=== PATIENT | female | born 1985 | race Hispanic/Latino ===

== ENCOUNTER 2021-03-17 14:46 | Emergency (ER) | payer MEDICAID, OTHER ==
--- NOTE | 2021-03-17 17:39 | Cat Scan Report ---
. CT neck wo con HISTORY: believes she swallowed a toothpick COMPARISON: None. TECHNIQUE: CT of the neck is performed. All CT scans at this location are performed using CT dose red uction for ALARA by means of automated exposure control. FINDINGS: Skull Base: No significant abnormality. Nasopharynx, oropharynx, hypopharynx: No significant abnormality. No mass identified.. Tonsils: Tonsils appear within normal limits. Airway: Patent and without significant abnormality. Salivary glands: No significant abnormality. Thyroid:No significant abnormality. Lymphatics: No lymphadenopathy. Vasculature: No significant abnormality. Osseous Structures: No significant abnormality Additional findings: Mild mucosal thickening of the maxillary sinuses.. IMPRESSION: 1. No foreign body is identified. Signer Name: Stephan Kulkarni MD Signed: 03/17/2021 5:35 PM Workstation Name: [id number]
--- NOTE | 2021-03-17 17:57 | Emergency Department Report ---
ED General Adult HPI - General Chief complaint: Skin/Abscess/Foreign Body Stated complaint: TOOTHPICK STUCK IN THROAT Time Seen by Provider: 03/17/21 15:46 Source: patient Mode of arrival: Ambulatory Limitations: No Limitations - History of Present Illness Initial comments: Patient is a 35-year-old female presents emergency room with complaints of a pos sible swallowed foreign body. She states that she was eating some food and believes that she may have swallowed half of a toothpick. She states that she is not sure if she swallowed it states that she did not feel any wood or crunch down on anything. She states that it feels like she has an sensation of something in her throat or in her esophagus. She states immediately she vomited because she wanted to make sure that there was nothing there. She states since then she has been able to tolerate p.o. intake. She denies any hemoptysis, shortness of breath, sensation of throat closing, hematochezia, melena, hematemesis, abdominal pain. No past medical history. No allergies to medications. - Related Data Previous Rx's Medication Instructions Recorded Last Taken Type Hydrocodone Bit/Acetaminophen 1 each PO Q4-6H PRN #12 tablet 10/20/13 Unknown Rx [Lortab 5-500 Tablet] HYDROcodone/APAP 5-325 [[place] 1 each PO Q6HR PRN #20 tablet 10/07/15 Unknown Rx 5/325] Ibuprofen [Motrin 800 MG tab] 800 mg PO TID PRN #40 tablet 10/07/15 Unknown Rx Penicillin Vk [Veetids TAB] 500 mg PO QID #40 tablet 10/07/15 Unknown Rx Ibuprofen [Motrin 800 MG tab] 800 mg PO Q8HR PRN #30 tablet 05/02/16 Unknown Rx Penicillin Vk [Veetids TAB] 500 mg PO QID #40 tablet 05/02/16 Unknown Rx Allergies Allergy/AdvReac Type Severity Reaction Status Date / Time No Known Allergies Allergy Verified 03/17/21 15:26 ED Review of Systems ROS: Stated complaint: TOOTHPICK STUCK IN THROAT Other details as noted in HPI Comment: All other systems reviewed and negative ED Past Medical Hx - Past Medical History Previous Medical History?: No - Surgical History Past Surgical History?: No - Social History Smoking Status: Current Every Day Smoker Substance Use Type: None - Medications Home Medications: Home Medications Medication Instructions Recorded Confirmed Last Taken Type Hydrocodone Bit/Acetaminophen 1 each PO Q4-6H PRN #12 tablet 10/20/13 Unknown Rx [Lortab 5-500 Tablet] HYDROcodone/APAP 5-325 [[place] 1 each PO Q6HR PRN #20 tablet 10/07/15 Unknown Rx 5/325] Ibuprofen [Motrin 800 MG tab] 800 mg PO TID PRN #40 tablet 10/07/15 Unknown Rx Penicillin Vk [Veetids TAB] 500 mg PO QID #40 tablet 10/07/15 Unknown Rx Ibuprofen [Motrin 800 MG tab] 800 mg PO Q8HR PRN #30 tablet 05/02/16 Unknown Rx Penicillin Vk [Veetids TAB] 500 mg PO QID #40 tablet 05/02/16 Unknown Rx ED Physical Exam - General Limitations: No Limitations General appearance: alert, in no apparent distress - Head Head exam: Present: atraumatic, normocephalic - Eye Eye exam: Present: normal appearance - ENT ENT exam: Present: normal orophraynx, mucous membranes moist - Neck Neck exam: Present: other (no stridor) - Respiratory Respiratory exam: Present: normal lung sounds bilaterally. Absent: respiratory distress, wheezes, rales, rhonchi, stridor, chest wall tenderness, accessory muscle use, decreased breath sounds, prolonged expiratory - Cardiovascular Cardiovascular Exam: Present: regular rate, normal rhythm, normal heart sounds. Absent: systolic murmur, diastolic murmur, rubs, gallop - GI/Abdominal GI/Abdominal exam: Present: soft, normal bowel sounds. Absent: distended, tenderness, rebound, rigid - Neurological Exam Neurological exam: Present: alert, oriented X3 - Psychiatric Psychiatric exam: Present: normal affect, normal mood - Skin Skin exam: Present: warm, dry, intact ED Course Vital Signs 03/17/21 03/17/21 15:25 18:09 Temperature 98.1 F Pulse Rate 101 H 73 Respiratory 20 18 Rate Blood Pressure 137/90 Blood Pressure 121/67 [Right] O2 Sat by Pulse 95 98 Oximetry ED Medical Decision Making - Lab Data Vital Signs 03/17/21 03/17/21 15:25 18:09 Temperature 98.1 F Pulse Rate 101 H 73 Respiratory 20 18 Rate Blood Pressure 137/90 Blood Pressure 121/67 [Right] O2 Sat by Pulse 95 98 Oximetry - Radiology Data Radiology results: report reviewed Ordering Physician: JAIDEN LOZANO Date of Service: 03/17/21 Procedure(s): CT neck wo con Accession Number(s): [id number] cc: JAIDEN LOZANO . CT neck wo con HISTORY: believes she swallowed a toothpick COMPARISON: None. TECHNIQUE: CT of the neck is performed. All CT scans at this location are performed using CT dose reduction for ALARA by means of automated exposure control. FINDINGS: Skull Base: No significant abnormality. Nasopharynx, oropharynx, hypopharynx: No significant abnormality. No mass identified.. Tonsils: Tonsils appear within normal limits. Airway: Patent and without significant abnormality. Salivary glands: No significant abnormality. Thyroid:No significant abnormality. Lymphatics: No lymphadenopathy. Vasculature: No significant abnormality. Osseous Structures: No significant abnormality Additional findings: Mild mucosal thickening of the maxillary sinuses.. IMPRESSION: 1. No foreign body is identified. Signer Name: Stephan Kulkarni MD Signed: 03/17/2021 5:35 PM Workstation Name: [id number] Transcribed By: CS Dictated By: Stephan Kulkarni MD Electronically Authenticated By: Stephan Kulkarni MD Signed Date/Time: 03/17/211734 DD/ 32 TD/TT: Print - Medical Decision Making Patient is a 35-year-old female presents emergency room with complaints of a possible swallowed foreign body. She states that she was eating some food and believes that she may have swallowed half of a toothpick. She states that she is not sure if she swallowed it states that she did not feel any wood or crunch down on anything. She states that it feels like she has an sensation of somethi ng in her throat or in her esophagus. She states immediately she vomited because she wanted to make sure that there was nothing there. She states since then she has been able to tolerate p.o. intake. She denies any hemoptysis, shortness of breath, sensation of throat closing, hematochezia, melena, hematemesis, abdominal pain. No past medical history. No allergies to medications. Vitals are stable. No abnormality on physical examination as documented in chart. CT neck without contrast: 1. No foreign body is identified. Discussed case with Dr. Wiggins, ER attending regarding patient presentation and results, he agrees with discharge home and outpatient follow-up and to give patient return precautions. Discussed in detail with patient very strict return precautions. She is tolerating p.o. intake. She has no stridor on exam. Her CT is within normal limits. Advised patient Please follow-up with your primary care doctor. Foot please follow-up with a GI doctor. Return to emergency room immediately for any new or worsening symptoms including but not limited to severe abdominal pain, blood in the stool or vomit, coughing up blood, etc. Critical care attestation.: If time is entered above; I have spent that time in minutes in the direct care of this critically ill patient, excluding procedure time. ED Disposition Clinical Impression: Sensation of foreign body in throat Disposition: DC-01 TO HOME OR SELFCARE Is pt being admited?: No Does the pt Need Aspirin: No Condition: Stable Additional Instructions: Please follow-up with your primary care doctor. Foot please follow-up with a GI doctor. Return to emergency room immediately for any new or worsening symptoms including but not limited to severe abdominal pain, blood in the stool or vomit, coughing up blood, etc. Referrals: PRIMARY CARE, [Primary Care Provider] - 2-3 Days [facility] [Provider Group] - 2-3 Days Time of Disposition: 17:57 Print Language: ARMENIAN
[2021-03-17 18:10] VITALS: BP 121/67
== END 2021-03-17 18:10 | disposition home or self-care (01) ==
LOC: ED 14:46
DX: R09.89 Other specified symptoms and signs involving the circulatory and respiratory systems (principal); F17.200 Nicotine dependence, unspecified, uncomplicated; Z79.899 Other long term (current) drug therapy
CPT/HCPCS: 70490

== ENCOUNTER 2021-04-14 10:12 | Emergency (ER) | payer OTHER ==
[2021-04-14 10:22] VITALS: BP 152/86
--- NOTE | 2021-04-14 11:35 | Emergency Department Report ---
ED ENT HPI - General Chief complaint: Dental/Oral Stated complaint: TOOTHACHE Time Seen by Provider: 04/14/21 11:27 Source: patient Mode of arrival: Ambulatory Limitations: No Limitations - History of Present Illness Initial comments: Patient is a 35-year-old -[place] female that comes to the ER with right lower dental pain. She denies any difficulty swallowing. She denies fever or chills. She denies chest pain or shortness of breath. She has significant caries throughout her molars. She states that she has a dentist appointment in 2 weeks. However, the patient is in the ER often for this. I explained to her that she cannot continue to come to the ER for her dental pain that we are only been dating her situation that she is needs to see a dentist. She insists that she has 1 scheduled in 2 weeks. I have informed her that in the future she will not be seen in the ER for her caries and will be most likely MSE at home because this is a chronic issue. She verbalizes understanding. Patient has no abscess. She has no trismus. She is not drooling. ABCs are intact. She is taking p.o. without difficulty. She is ambulatory nontoxic and [id number] on exam in [facility]. - Related Data Previous Rx's Medication Instructions Recorded Last Taken Type Hydrocodone Bit/Acetaminophen 1 each PO Q4-6H PRN #12 tablet 10/20/13 Unknown Rx [Lortab 5-500 Tablet] HYDROcodone/APAP 5-325 [[place] 1 each PO Q6HR PRN #20 tablet 10/07/15 Unknown Rx 5/325] Ibuprofen [Motrin 800 MG tab] 800 mg PO TID PRN #40 tablet 10/07/15 Unknown Rx Penicillin Vk [Veetids TAB] 500 mg PO QID #40 tablet 10/07/15 Unknown Rx Ibuprofen [Motrin 800 MG tab] 800 mg PO Q8HR PRN #30 tablet 05/02/16 Unknown Rx Penicillin Vk [Veetids TAB] 500 mg PO QID #40 tablet 05/02/16 Unknown Rx Amoxicillin [Trimox CAP] 500 mg PO TID #30 capsule 04/14/21 Unknown Rx Ibuprofen [Motrin] 800 mg PO Q8HR PRN #30 tablet 04/14/21 Unknown Rx Allergies Allergy/AdvReac Type Severity Reaction Status Date / Time No Known Allergies Allergy Verified 05/06/21 15:26 ED Dental HPI - General Chief complaint: Dental/Oral Stated complaint: TOOTHACHE Time Seen by Provider: 04/14/21 11:27 Source: patient Mode of arrival: Ambulatory Limitations: No Limitations - Related Data Previous Rx's Medication Instructions Recorded Last Taken Type Hydrocodone Bit/Acetaminophen 1 each PO Q4-6H PRN #12 tablet 10/20/13 Unknown Rx [Lortab 5-500 Tablet] HYDROcodone/APAP 5-325 [[place] 1 each PO Q6HR PRN #20 tablet 10/07/15 Unknown Rx 5/325] Ibuprofen [Motrin 800 MG tab] 800 mg PO TID PRN #40 tablet 10/07/15 Unknown Rx Penicillin Vk [Veetids TAB] 500 mg PO QID #40 tablet 10/07/15 Unknown Rx Ibuprofen [Motrin 800 MG tab] 800 mg PO Q8HR PRN #30 tablet 05/02/16 Unknown Rx Penicillin Vk [Veetids TAB] 500 mg PO QID #40 tablet 05/02/16 Unknown Rx Amoxicillin [Trimox CAP] 500 mg PO TID #30 capsule 04/14/21 Unknown Rx Ibuprofen [Motrin] 800 mg PO Q8HR PRN #30 tablet 04/14/21 Unknown Rx Allergies Allergy/AdvReac Type Severity Reaction Status Date / Time No Known Allergies Allergy Verified 03/17/21 15:26 ED Review of Systems ROS: Stated complaint: TOOTHACHE Other details as noted in HPI Comment: All other systems reviewed and negative ED Past Medical Hx - Past Medical History Previous Medical History?: No - Surgical History Past Surgical History?: No - Family History Family history: no significant - Social History Smoking Status: Current Every Day Smoker Substance Use Type: Alcohol - Medications Home Medications: Home Medications Medication Instructions Recorded Confirmed Last Taken Type Hydrocodone Bit/Acetaminophen 1 each PO Q4-6H PRN #12 tablet 10/20/13 Unknown Rx [Lortab 5-500 Tablet] HYDROcodone/APAP 5-325 [[place] 1 each PO Q6HR PRN #20 tablet 10/07/15 Unknown Rx 5/325] Ibuprofen [Motrin 800 MG tab] 800 mg PO TID PRN #40 tablet 10/07/15 Unknown Rx Penicillin Vk [Veetids TAB] 500 mg PO QID #40 tablet 10/07/15 Unknown Rx Ibuprofen [Motrin 800 MG tab] 800 mg PO Q8HR PRN #30 tablet 05/02/16 Unknown Rx Penicillin Vk [Veetids TAB] 500 mg PO QID #40 tablet 05/02/16 Unknown Rx Amoxicillin [Trimox CAP] 500 mg PO TID #30 capsule 04/14/21 Unknown Rx Ibuprofen [Motrin] 800 mg PO Q8HR PRN #30 tablet 04/14/21 Unknown Rx ED Physical Exam - General Limitations: No Limitations General appearance: alert, in no apparent distress - Head Head exam: Present: atraumatic, normocephalic - Eye Eye exam: Present: normal appearance - ENT ENT exam: Present: mucous membranes moist - Expanded ENT Exam Expanded Mouth exam: Present: normal external inspection. Absent: drooling, trismus, muffled voice, tongue normal, tongue elevation, laceration Teeth exam: Present: dental caries 1 - Other (caries) Throat exam: Positive: normal inspection - Neck Neck exam: Present: normal inspection - Respiratory Respiratory exam: Present: normal lung sounds bilaterally. Absent: respiratory distress - Cardiovascular Cardiovascular Exam: Present: regular rate, normal rhythm. Absent: systolic murmur, diastolic murmur, rubs, gallop - GI/Abdominal GI/Abdominal exam: Present: soft, normal bowel sounds - Extremities Exam Extremities exam: Present: normal inspection - Back Exam Back exam: Present: normal inspection - Neurological Exam Neurological exam: Present: alert, oriented X3 - Psychiatric Psychiatric exam: Present: normal affect, normal mood - Skin Skin exam: Present: warm, dry, intact, normal color. Absent: rash ED Course Vital Signs 04/14/21 04/14/21 10:17 11:24 Temperature 98.2 F Pulse Rate 83 Respiratory 18 16 Rate Blood Pressure 152/86 [Right] O2 Sat by Pulse 97 Oximetry ED Medical Decision Making - Medical Decision Making Vital Signs 04/14/21 04/14/21 10:17 11:24 Temperature 98.2 F Pulse Rate 83 Respiratory 18 16 Rate Blood Pressure 152/86 [Right] O2 Sat by Pulse 97 Oximetry Patient being discharged home with amoxicillin for her dental pain. She understands that she needs to see the dentist as scheduled in 2 weeks. - Differential Diagnosis Acute on chronic dental caries Critical care attestation.: If time is entered above; I have spent that time in minutes in the direct care of this critically ill patient, excluding procedure time. ED Disposition Clinical Impression: Toothache, Chronic dental pain Disposition: TO HOME OR SELFCARE Is pt being admited?: No Does the pt Need Aspirin: No Condition: Stable Instructions: Acute Pain, Adult Prescriptions: Ibuprofen [Motrin] 800 mg PO Q8HR PRN #30 tablet PRN Reason: Pain, Moderate (4-6) Amoxicillin [Trimox CAP] 500 mg PO TID #30 capsule Referrals: [facility]Outside[facility] - 3-5 Days [facility] [Outside] - 3-5 Days Forms: Work/School Release Form(ED) Time of Disposition: 11:33
== END 2021-04-14 11:35 | disposition home or self-care (01) ==
LOC: ED 10:12
DX: K08.89 Other specified disorders of teeth and supporting structures (principal); G89.29 Other chronic pain; F17.200 Nicotine dependence, unspecified, uncomplicated; Z79.899 Other long term (current) drug therapy
CPT/HCPCS: 99282